=== PATIENT | female | born 2005 | race Caucasian/White ===

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

== ENCOUNTER → 2024-09-21 | Outpatient (CLI) | payer OTHER ==
[2024-09-21 15:18] LABS: Basophils # (A) 0.06 X 10*3/uL (0.00-0.10); Basophils % (A) 0.6 %; Eosinophils # (A) 0.07 X 10*3/uL (0.04-0.35); Eosinophils % (A) 0.7 %; HCT 46.4 % (37.2-46.3); HGB 15.6 g/dL (12.0-15.0); Lymphocytes # (A) 1.43 X 10*3/uL (0.90-5.00); Lymphocytes % (A) 14.6 %; MCH 29.9 pg (27.0-32.0); MCHC 33.6 g/dL (32.0-37.0); MCV 89.1 FL (80.0-97.0); Mean Platelet Volume 10.3 FL (9.5-12.2); Monocytes # (A) 0.61 X 10*3/uL (0.20-1.00); Monocytes % (A) 6.2 %; NRBC Per 100 WBC 0 X 10*3/uL (0.00-0.01); Neutrophils # (A) 7.56 X 10*3/uL (1.80-7.70); Neutrophils % (A) 77.5 %; Platelet Count 412 X 10*3/uL (140-440); RBC 5.21 X 10*6/uL (4.10-5.20); RDW 11.6 % (11.5-14.5); WBC 9.77 X 10*3/uL (4.50-10.00)
== END | disposition home or self-care (01) ==
LOC: LABWHC1 12:07
PROVIDERS: ATTEND Family Medicine
DX: D72.829 Elevated white blood cell count, unspecified (principal); K58.8 Other irritable bowel syndrome; F41.9 Anxiety disorder, unspecified
CPT/HCPCS: 36415; 84443; 85025